=== PATIENT | male | born 1970 | race Caucasian/White ===

== ENCOUNTER 2019-01-17 19:48 | Inpatient (IN) | payer OTHER ==
[~2019-01-17] VITALS: Ht 162.6 cm; Wt 81.6 kg
--- NOTE | ~2019-01-17 | CON ---
[address] [address] CONSULTATION Name: ABHIJEET DOLAN Room: [address] IN .R.#: [id number] Admission: 01/17/19 Attend Phys: Billy Carmona Discharge: Date of : 74 Report #: [id number] THIS REPORT FOR: //name// CC: JOCE physician/PCP Rodrigue Weber HISTORY OF PRESENT ILLNESS: This is a pleasant 48-year-old gentleman, no significant past medical history who is presenting for evaluation of abdominal pain. The patient reports that he had acute onset of abdominal pain last night. The pain was located below his umbilicus, sharp, stabbing in nature, severe and 10/10 in intensity. The pain was localized, nonradiating, associated with nausea, fevers, chills and diaphoresis. The patient denies similar episodes in the past. The patient denies any hematemesis, hematochezia or recent weight loss. PAST MEDICAL HISTORY: Nonsignificant. PAST SURGICAL HISTORY: Nonsignificant. SOCIAL HISTORY: The patient denies smoking, alcohol or recreational drug use. FAMILY HISTORY: There is no family history of colon cancer ____ neoplasia. Father had lung cancer. REVIEW OF SYSTEMS: Comprehensive 10-point review of systems is negative except what was mentioned in the HPI. PHYSICAL EXAMINATION: VITAL SIGNS: Temperature 37.1, pulse rate 108, respirations 17, blood pressure 109/79, pulse ox 96% on room air. GENERAL: The patient is alert, awake, oriented x 3. HEENT: Pupils are equal, round, reactive to light and accommodation. Mucous membranes are moist. There is no congestion. LUNGS: Clear to auscultation bilaterally. CARDIOVASCULAR: Rate and rhythm regular, S1, S2 present. ABDOMEN: Soft. There is no distention. Mild tenderness to palpation is seen in the region below the umbilicus. No guarding or rigidity. EXTREMITIES: Warm and well perfused. There is no edema. LABORATORY DATA: Hemoglobin 13.8, hematocrit 38.6, WBC count 12.5, platelet count 198. Sodium 147, potassium 4.0, chloride 111, bicarbonate 25, BUN 15, creatinine 1.3. Lipase 95. IMAGING: Abdomen and pelvis CT, this demonstrates sigmoid colon diverticulitis involving 7 cm segment of the proximal sigmoid colon with CT findings suggestive of microperforation. No evidence of pericolonic inflammatory mass [place] [address] CONSULTATION Name: ABHIJEET DOLAN Room: [address]#: [id number] Admission: 01/17/19 Attend Phys: Billy Carmona Discharge: Date of : 74 Report #: [id number] ASSESSMENT AND PLAN: A pleasant 48-year-old gentleman presenting with a first episode of complicated diverticulitis with microperforation. There are no signs of peritonitis at this time. We will perform a colonoscopy in about 6-8 weeks' time to assess the extent of diverticulosis and rule out other concomitant conditions. Agree with current antibiotic regimen of ciprofloxacin and metronidazole. Can advance diet to clear liquids tomorrow and then further advance diet as tolerated. Thank you for this consultation. Please call or contact us with any further questions. By: [id number] Queen MD /nt
[2019-01-17 19:57] VITALS: BP 124/60
[2019-01-17 20:09] LABS: URINE BILIRUBIN NEGATIVE (Negative); URINE BLOOD NEGATIVE (Negative); URINE CLARITY CLEAR; URINE COLOR YELLOW; URINE GLUCOSE-RANDOM NEGATIVE (Negative); URINE KETONES NEGATIVE (Negative); URINE LEUKOCYTES NEGATIVE (Negative); URINE NITRITE NEGATIVE (Negative); URINE PROTEIN 2+ (Negative); URINE SPECIFIC GRAVITY >= 1.030 (1.005-1.030); URINE UROBILINOGEN 0.2 E.U./dl (0.2-1.0)
[2019-01-17 20:25] LABS: SQUAMOUS 0-3 Few /LPF (0-3)
[2019-01-17 20:26] LABS: CRYSTALS None Seen /LPF (None Seen); HYALINE CASTS 0-3 Few /LPF (None Seen); MUCUS 0-3 Light strn/LPF (None Seen)
[2019-01-17 20:28] LABS: BACTERIA None Seen /HPF (None Seen); URINE RBC None Seen /HPF (0-2); URINE WBC None Seen /HPF (0-5)
[2019-01-17 20:33] LABS: ABSOLUTE BASOPHILS 0.1 thou/uL (0.0-0.2); ABSOLUTE EOSINOPHILS 0.2 thou/uL (0.0-0.7); ABSOLUTE LYMPHOCYTES 1.9 thou/uL (0.8-5.3); ABSOLUTE MONOCYTES 0.6 thou/uL (0.0-1.2); BASOPHILS 0.7 %; EOSINOPHILS 1.3 %; HEMATOCRIT 39.6 % (42.0-52.0); HEMOGLOBIN 13.6 gm/dL (14.0-18.0); LYMPHOCYTES 15.9 %; MCH 30.4 pg (26.0-34.0); MCHC 34.4 g/dL (28.0-37.0); MCV 88.3 fL (80.0-100.0); MONOCYTES 4.8 %; NUCLEATED RBCS 0 /100WBC; PLATELET COUNT* 232 thou/uL (150-400); POLYS 77.3 %; RBC 4.49 mil/uL (4.50-6.00); RDW-CV 13.3 % (10.5-14.5); WBC 11.7 thou/uL (4.0-11.0)
[2019-01-17 20:42] LABS: CALCIUM 8.7 mg/dL (8.5-10.1); CREATININE 1.3 mg/dL (0.6-1.3); POTASSIUM 3.7 mmol/L (3.5-5.1)
[2019-01-17 20:47] LABS: ALBUMIN 3.7 g/dL (3.4-5.0); TOTAL BILIRUBIN 0.4 mg/dL (<0.1-1.0); TOTAL PROTEIN 6.7 g/dL (6.4-8.2)
[2019-01-17 22:58] VITALS: BP 134/63
[2019-01-17 23:00] VITALS: BP 134/88
--- NOTE | 2019-01-18 04:52 | NUR ---
ASSESSMENT: PT ARRIVED TO THE UNIT VIA CART ACCOMPANIED BY STAFF. PT'S YASMANI CAME TO SPEND THE NIGHT AT THE BEDSIDE. PT IS PLEASANT, COOPERATIVE AND CALM. PT DOES NOT HAVE ANY SIGNIFICANT HX NOR DOES HE TAKE ANY PRESCRIBED MEDS. NO MEDICAL HOSPITALIZATON SINCE CHILD COLINDRES. PT HAD A LOW GRADE TEMP OF 100.7 C/O ABDOMINAL PAIN, MS GIVEN WITH GOOD RELIEF, PT SLEEPING SHORTLY AFTERWARDS. NOTE THAT DR. RAHMAN ONLY ORDERED 250MG OF FLAGYL TO BE GIVEN, THAT IS ONLY HALF OF A 100 ML BAG. PER PHARMACY, THIS ORDER NEEDS TO BE CLARIFIED AND AFTER THE INITIAL DOSE, PHARMACY HAS SINCE DC'D THE ORDER UNTIL FURTHER NOTICE. FLAGYL DOES NOT COME IN 250MG BAGS. WILL CONTINUE TO MONITOR THE PT.
[2019-01-18 08:02] LABS: HEMATOCRIT 38.6 % (42.0-52.0); HEMOGLOBIN 13.2 gm/dL (14.0-18.0); MCH 30.8 pg (26.0-34.0); MCHC 34.3 g/dL (28.0-37.0); MCV 89.8 fL (80.0-100.0); MPV 9.4 fl. (7.2-11.1); RBC 4.3 mil/uL (4.50-6.00); RDW-CV 13.6 % (10.5-14.5); WBC 12.5 thou/uL (4.0-11.0)
[2019-01-18 08:04] LABS: CALCIUM 8.2 mg/dL (8.5-10.1); CREATININE 1.3 mg/dL (0.6-1.3)
[2019-01-18 09:24] VITALS: BP 109/79
--- NOTE | 2019-01-18 16:08 | NUR ---
ASSUMED CARE OF PT AROUND 0730 THIS AM. REFER TO ASSESSMENT. PT REPORTS BETTER PAIN MANAGEMENT THIS AFTERNOON. PT GIVEN ONE DOSE PRN IV MORPHINE THIS SHIFT. PT REPORTS LESS ABDOMINAL PAIN AND BLOATING. IVF AND ABTS ADMINISTERED PRESCRIBED. VSS. NO OTHER CONCERNS AT THIS TIME. CLWR. WCTM.
[2019-01-18 16:38] VITALS: BP 124/73
--- NOTE | 2019-01-18 17:13 | EKG ---
[place] [address] ELECTROCARDIOGRAM REPORT Name: ABHIJEET DOLAN Room: [address] ADM IN .R.#: [id number] Admission: 01/17/19 Attend Phys: Billy Carmona Discharge: Date of : 74 Report #: [id number] THIS REPORT FOR: //name// [facility] ED Test Date: 2019-01-17 Test Time: 20:27:29 Pat Name: ABHIJEET DOLAN Department: Room: [facility] Gender: M Director Of Education And Training: : 1970 Requested By: Jie Jacobson Order Number: [id number] MD: Jace Lai Measurements Intervals [place] Rate: 67 P: 45 VT: 151 QRS: -20 QRSD: 80 T: -1 QT: 419 QTc: 443 Interpretive Statements Sinus rhythm Abnormal R-wave progression, early transition Left ventricular hypertrophy, by voltage Borderline T abnormalities, inferior leads No previous ECG available for comparison Electronically Signed On 01-18-2019 17:13:03 CDT by Jace Lai [email or web address] <ELECTRONICALLY SIGNED> By: Jace Lai MD, [facility] 01/18/19 1713 26 26 Jace Lai MD, [facility] /EPI
[2019-01-18 20:30] VITALS: BP 128/78
[2019-01-19 03:42] LABS: HEMATOCRIT 35.4 % (42.0-52.0); HEMOGLOBIN 11.7 gm/dL (14.0-18.0); MCH 30.1 pg (26.0-34.0); MCHC 33.2 g/dL (28.0-37.0); MCV 90.8 fL (80.0-100.0); MPV 9.1 fl. (7.2-11.1); RBC 3.9 mil/uL (4.50-6.00); RDW-CV 14.1 % (10.5-14.5); WBC 12.3 thou/uL (4.0-11.0)
[2019-01-19 04:07] LABS: ALBUMIN 2.8 g/dL (3.4-5.0); CALCIUM 8.3 mg/dL (8.5-10.1); CREATININE 1.2 mg/dL (0.6-1.3); POTASSIUM 4.1 mmol/L (3.5-5.1); TOTAL BILIRUBIN 0.8 mg/dL (<0.1-1.0); TOTAL PROTEIN 6.1 g/dL (6.4-8.2)
--- NOTE | 2019-01-19 06:56 | NUR ---
PT ALERT AND ORIENTED. VSS ON RA. PT SLEPT MOST OF THE NIGHT. IV ON LAC GOT INFILTRATED AND WAS DC'D. NEW IV STARTED ON RFA. MEDS GIVEN PER EMAR. PT NPO, HOPING TO ADVANCE DIET TODAY. WITH PT IN THE ROOM THROUGH SHIFT. PT AND PLEASANT AND APPROPRIATE. HOURLY ROUNDINGS MADE. CALL LIGHT WITHIN REACH. WILL CONTINUE TO MONITOR.
[2019-01-19 08:00] VITALS: BP 131/87
--- NOTE | 2019-01-19 11:10 | NUR ---
PER LAKESHA/CHRISTIANOARC, PT.IS ABLE TO EARN OVER SGA. IS NOT ELIGIBLE FOR ANY ASSISTANCE PROGRAMS.
[2019-01-19 12:05] LABS: GLYCOHEMOGLOBIN (HGB A1C) 5.4 % (4.8-5.6)
[2019-01-19 16:05] VITALS: BP 154/88
--- NOTE | 2019-01-19 18:38 | NUR ---
PT A&Ox4. VITALS STABLE. PAIN CONTROLLED WITH MORPHINE. NAUSEA CONTROLLED WITH ZOFRAN. IV PATENT. TOLERATING CLEAR LIQUIDS. UP AD LIBAN. CALL LIGHT WITHIN REACH. WILL CONTINUE TO MONITOR.
[2019-01-19 20:00] VITALS: BP 143/81
[2019-01-20 04:49] LABS: HEMATOCRIT 32.9 % (42.0-52.0); HEMOGLOBIN 11.1 gm/dL (14.0-18.0); MCH 30.6 pg (26.0-34.0); MCHC 33.8 g/dL (28.0-37.0); MCV 90.5 fL (80.0-100.0); MPV 9.1 fl. (7.2-11.1); RBC 3.63 mil/uL (4.50-6.00); RDW-CV 13.5 % (10.5-14.5); WBC 10.3 thou/uL (4.0-11.0)
[2019-01-20 05:01] LABS: CALCIUM 8.1 mg/dL (8.5-10.1); CREATININE 1.1 mg/dL (0.6-1.3); POTASSIUM 3.6 mmol/L (3.5-5.1)
--- NOTE | 2019-01-20 06:25 | NUR ---
PT ALERT AND ORIENTED. VSS ON RA. PT SLEPT MOST OF SHIFT. NEW IV STARTED ON -. IV ABX GIVEN. PAIN MEDS GIVEN X1 THIS SHIFT. RELIEF NOTED. PT SAYS HE'S TOLERATION CL-DIET WELL. WITH PT THIS SHIFT. CALL LIGHT WITHIN REACH. GOURLY ROUNDINGS MADE. WILL CONTINUE TO MONITOR.
[2019-01-20 09:00] VITALS: BP 149/86
--- NOTE | 2019-01-20 12:00 | NUR ---
SAW PT.AND IN ROOM. HE SAID HE FEELS MUCH BETTER. HOPES TO GO HOME TOMORROW. HE WORKS FULLTIME. LIVES WITH HIS AND TEENAGE CHILDREN IN A HOUSE. WORK RELEASE IN FRONT OF HIS CHART. ON TUESDAY HAD RECOMMENDED HE STAY OFF ONE WEEK BUT HE SAID THIS IS A FAIRLY NEW JOB FOR HIM AND HAS TO BE BACK BY THIS TUESDAY. TOLD HIM TO TALK WITH HIS DR TOMORROW. GAVE HIM PACKET FOR THE UNINSURED AND DISCUSSED. GOES TO [facility] [place] FOR HER NEWLY DX DIABETES. PT.WILL NEED A FOLLOW UP COLONOSCOPY AT SOME POINT OUTPT. TOLD HIM [facility] MAY HAVE SOMEONE TO REFER HIM TO OR HE COULD TRY THE [employer] SYSTEM. ALSO GAVE HIM A GOOD RX CARD. LOOKED UP YASMINE AND MARTIN FOR HIM. LOWEST MILLER IS AT [facility]. HE SAID HE COULD AFFORD THIS. SAID THEY DO HAVE THEIR CHILDREN ON MEDICAID.
[2019-01-20 16:00] VITALS: BP 143/98
--- NOTE | 2019-01-20 16:38 | NUR ---
ASSUMED CARE OF PATIENT AT 0700. ALERT AND ORIENTED X 4. VITAL SIGNS STABLE ON ROOM AIR. AFEBRILE. IV PATENT AND SALINE LOCKED. PAIN AND NAUSEA BEING MANAGED WITH IV MEDICATION. MEDICATIONS GIVEN PER MAR. HOURLY ROUNDS MAINTAINED THROUGHOUT THE SHIFT. CALL LIGHT WITHIN REACH. NURSING WILL CONTINUE TO MONITOR.
[2019-01-20 22:15] VITALS: BP 150/96
--- NOTE | 2019-01-21 05:58 | NUR ---
PT ALERT AND ORIENTED. VSS. MEDS GIVEN PER EMAR. PT SLEPT MOST OF SHIFT. WITH PT THROUGH SHIFT. MEDS GIVEN PER EMAR. CT SCAN TODAY. POSSIBLE DC TO HOME TODAY. HOURLY ROUNDINGS MADE. CALL LIGHT WITHIN REACH. WILL CONTINUE TO MONITOR.
[2019-01-21] MEDS ORDERED: FLAGYL500 M1 PO (08:06)
[2019-01-21] MEDS ORDERED: HYDROCODON-ACE1 EAC7 PO (08:06)
[2019-01-21] MEDS ORDERED: CIPRO500 MG PO (08:06)
[2019-01-21] MEDS ORDERED: COLACE100 MG PO (08:07)
[2019-01-21 09:00] VITALS: BP 149/93
[2019-01-21 10:42] VITALS: BP 149/93
--- NOTE | 2019-01-21 12:36 | NUR ---
PATIENT DISCHARGED FROM UNIT AT 1155. ALERT AND ORIENTED X 4. VITAL SIGNS STABLE ON ROOM AIR. IV DISCONTINUED. DENIES PAIN AND NAUSEA AT THIS TIME. DISCHARGE INSTRUCTIONS, MEDICATION INFORMATION, AND SCRIPTS GIVEN TO PATIENT. LEFT WITH ALL BELONGINGS. PATIENT LEFT WITH SPOUSE VIA CAR.
[2019-01-21 12:38] VITALS: BP 149/93
== END 2019-01-21 11:55 | disposition home or self-care (01) | DRG 392 ==
LOC: M.ERS 19:48 → M.ORTHSURG 22:11 → M.TBA-ER 22:11 → M.ORTHSURG 23:41
PROVIDERS: Internal Medicine; Nurse Practitioner; ADMIT Internal Medicine
DX: K57.20 Diverticulitis of large intestine with perforation and abscess without bleeding (principal); R65.10 Systemic inflammatory response syndrome (SIRS) of non-infectious origin without acute organ dysfunction; R73.9 Hyperglycemia, unspecified